=== PATIENT | female | born 1950 | race Caucasian/White ===

== ENCOUNTER 2024-02-15 12:07 | Emergency (ER) | payer OTHER, SELFPAY ==
--- NOTE | 2024-02-15 | ECG_ITS ---
Test Reason : DIZZINESS Blood Pressure : / mmHG Vent. Rate : 061 BPM Atrial Rate : 061 BPM P-R Int : 192 ms QRS Dur : 078 ms QT Int : 418 ms P-R-T Axes : 055 -15 055 degrees QTc Int : 420 ms Normal sinus rhythm Minimal voltage criteria for LVH, may be normal variant ( R in aVL ) Borderline ECG No previous ECGs available Referred By: Generic ED Physician Electronically Signed By:LAURENCE MABRY
--- NOTE | ~2024-02-15 | CT_ITS ---
EXAMINATION: CTA head and neck with and without contrast CLINICAL INFORMATION: Dizziness, history of TIA COMPARISON: None available. TECHNIQUE: Test bolus sequences followed by intravenous administration of 70 mL of Omnipaque 350 contrast. Helical imaging was performed in the axial plane from the skull vertex to the thoracic inlet. Delayed postcontrast imaging of the head was also performed. The data was processed at the production technologist workstation for generation of MIP sequences. Angled MIPs and volume rendered reformatted images were also generated at an offline 3D workstation. Stenoses are assessed in accordance with NASCET criteria unless otherwise indicated. This CT examination was performed using dose optimization techniques as appropriate, variously including the following: *Automated exposure control *Adjustment of mA and/or kV according to patient size (this includes techniques or standardized protocols for targeted exams where dose is matched to indication/reason for exam; i.e. extremities or head) *Use of iterative reconstruction technique DLP: 1951 mGy-cm FINDINGS: BRAIN: No acute intracranial hemorrhage or infarct. The amezquita-white matter differentiation is preserved. Patchy hypodensity involving the periventricular and deep white matter compatible with small vessel ischemic disease. No midline shift or hydrocephalus. No acute extra-axial fluid collections. The osseous structures are unremarkable. No orbital pathology. Sequela bilateral lens replacement. The paranasal sinuses and mastoid air cells are clear. Atherosclerotic calcifications of the bilateral carotid siphons. CTA NECK: Three-vessel aortic arch. The innominate and bilateral subclavian arteries are patent. The origins and cervical segments of the common carotid arteries as well as the common carotid artery bifurcations are patent bilaterally. The cervical segments of the internal carotid arteries are also patent bilaterally. The origins and cervical segments of the vertebral arteries are patent bilaterally. No hemodynamically significant stenosis, dissection, or aneurysm. The visualized branches of the external carotid arteries are unremarkable. CTA HEAD: Anterior circulation: The petrous, cavernous, and supraclinoid segments of the internal carotid arteries are patent bilaterally. The major branches of the anterior and middle cerebral arteries as well as anterior communicating artery complex are patent. No large vessel occlusion, saccular aneurysm, or dissection. Posterior circulation: The intracranial vertebral arteries are patent bilaterally. The basilar artery is normal in course and caliber. The posterior cerebral and superior cerebellar arteries arise normally from the basilar summit. Left posterior cerebral artery. No aneurysm. On delayed imaging, the venous structures demonstrate normal contrast opacification. No filling defect. No abnormal intraparenchymal enhancement. Soft tissues: No suspicious neck mass or cervical adenopathy. Lungs: Clear. Bones: No acute osseous abnormality. No lytic or blastic osseous lesions. Multilevel degenerative changes of the visualized spine. CT/CT angio head neck IMPRESSION: CT head demonstrates no acute intracranial hemorrhage or edematous territorial infarction. CTA head demonstrates no large vessel occlusion, saccular aneurysm, or dissection. CTA neck demonstrates no hemodynamically significant stenosis, dissection, or aneurysm. Electronically signed by: Homero Alex MD 02/15/2024 03:03 PM EDT
[2024-02-15 12:11] VITALS: BP 132/92; PULSE 65; O2SAT 98; BMI 25.7
[2024-02-15 12:18] VITALS: BP 154/75; PULSE 65; RESP 16; TEMP 36.7; O2SAT 97
--- NOTE | 2024-02-15 12:25 | ED_ITS ---
HPI - General Adult General Chief complaint: Dizziness Stated complaint: N/V/D Time Seen by Provider: 02/15/24 12:22 Source: patient, EMS and polytechnic teacher (macedonian) Mode of arrival: EMS Limitations: no limitations (macedonian speaking) History of Present Illness ED Provider: TITA CERNA PA-C HPI narrative: 73 year old Latvian speaking female presents to the ED today for evaluation of dizziness and nausea which began last night. Patient reports dizziness feels like a room spinning sensation. Has been intermittent since onset. Was initially afraid to ambulate to the restroom last night however dizziness had temporarily resolved and she was able to ambulate to the bathroom. Reports symptoms continued this morning, prompting her to call EMS for transport to ED. admits to remote history of vertigo and states that this feels similar. Does not currently take any medication for vertigo. Dizziness is not worse with head movements. Denies any falls or head trauma. Admits to associated nausea without vomiting. Denies headache, vision changes, chest pain, palpitations, shortness of breath, calf pain or swelling. Denies recent travel or long car rides. healthcare or medical utilized throughout visit to communicate with patient. Related Data Previous Rx's ?Medication ?Instructions ?Recorded meclizine 25 mg tablet 25 mg PO BID PRN dizziness #20 tabs 02/15/24 Allergies Allergy/AdvReac Type Severity Reaction Status Date / Time No Known Allergies Allergy Verified 02/15/24 12:14 Review of Systems 2 Review of Systems: Constitutional: No fever, chills, fatigue, night sweats, weight changes ENT/Mouth: No ear pain, hearing loss, nasal congestion, sinus pain, rhinorrhea, sore throat Eyes: No eye pain, swelling, redness, vision changes, discharge Cardio: No chest pain, palpitations, SEWELL, orthopnea, peripheral edema Pulm: No SOB, cough, sputum, wheezing, dyspnea, hemoptysis GI: No vomiting, hematemesis, abdominal pain, diarrhea, constipation, hematochezia, melena, +nausea : No irregular bleeding, dysuria, frequency, urgency, hesitancy, hematuria, flank pain, urinary flow changes, urinary incontinence or retention MSK: No back pain, neck pain, joint pain, myalgias Skin: No lesions, rashes Neuro: No weakness, numbness, paresthesias, LOC, headache, +dizziness Psych: No anxiety/panic, depression, SI/HI, AH/VH All other systems reviewed and are negative. [facility] Past Medical History Attestation statement: The following information was validated with the patient. Source: old records reviewed and nursing notes reviewed Social History Social History Smoked in Last 30 Days: No Use of substances other than those prescribed or required for medical reasons: No Advance Directives: No Advance Directives Information Provided: No Do you have a plan to hurt others: No Plan Physical Exam ED Vital Signs: Vital Signs - 24 hr 02/15/24 12:18 02/15/24 14:50 02/15/24 15:50 Temperature 98.1 F 97.5 F 97.9 F Pulse Rate 65 61 65 Respiratory Rate 16 17 16 Blood Pressure 154/75 H 153/72 H 157/75 H Pulse Oximetry 97 95 97 Oxygen Delivery Method Room Air Room Air Room Air 02/15/24 16:00 Temperature 97.9 F Pulse Rate 65 Respiratory Rate 16 Blood Pressure 157/75 H Pulse Oximetry 97 Oxygen Delivery Method Room Air BMI result Body Mass Index 25.7 hypertensive to 154/75 vitals otherwise wnl General: Well appearing, in no acute distress. Skin: Warm, dry, intact. No rashes or lesions. Head: Normocephalic, atraumatic. EENT: Hearing is intact b/l. Conjunctiva clear. PERRLA. Moist mucous membranes.? Neck: Supple without LAD Cardiac: Chest wall symmetric. RRR. No MRG. No JVD. Lungs: Normal respiratory effort without accessory muscle use. CTA bilaterally.? Abdomen: Soft, non-tender, non-distended. No rebound tenderness or guarding. Positive BS x4. Back: No midline spinous or paraspinal tenderness. Ext: Upper and lower extremities atraumatic, without tenderness, deformity, swelling or erythema. Full ROM throughout. Neuro: AOx3. Normal speech. Strength 5/5 intact throughout. Sensation intact to light touch. NV intact distally. Ambulating with steady gait. finger to nose intact. rapid mvmts of UE intact. Psych: Appropriate mood and affect. Responds appropriately to questions. NIH Stroke Scale Internal: Initial- Upon Arrival Time: 12:22 Level of Consciousness: Alert Level of Consciousness Questions: Answers both questions correctly Level of Consciousness Commands: Performs both tasks correctly Best Gaze: Normal Visual: No visual loss Facial Palsy: Normal Motor Arm (Right): No drift Motor Arm (Left): No drift Motor Leg (Right): No drift Motor Leg (Left): No drift Limb Ataxia: Absent Sensory: Normal Best Language: No aphasia Dysarthia: Normal Extinction and Inattention: No abnormality Score: 0 Course Course Course Narrative: 1546 --CBC without leukocytosis or left shift. No anemia. H&H stable. Chemistry without acute electrolyte abnormality requiring intervention. BUN elevated at 24. Creatinine WNL. Random glucose 126. Liver enzymes WNL. Lipase slightly elevated 96. TSH WNL. Troponin undetectable. ACS unlikely. EKG showing normal sinus rhythm with a rate of 61 beats per minute, QT 418, QTC 420, no acute ischemic changes or ST elevations. CT head without intracranial hemorrhage. CTA head/ neck without occlusion/ stenosis. > On re-evaluation, patient reports improvement in symptoms after receiving IVF and meclizine. Has ambulated to bathroom partially assisted by radiographer technologist however states she feels significantly better. Does not have any hesitations with ambulating at present. > given unremarkable work up and improvement with IV medications, I suspect peripheral vertigo. I do not feel as though MRI is indicated at this time as cerebellar exam is intact. Will send meclizine to pharmacy. advised to follow up with PCP this week. Patient has remained stable throughout ED visit today. Discussed worrisome signs and symptoms and when to return to the ED. All questions answered at this time. Patient is agreeable with disposition and stable for discharge. Medications Administered Discontinued Medications Generic Name Dose Route Start Last Admin Trade Name Melinda PRN Reason Stop Dose Admin Sodium Chloride 1,000 mls @ 999 mls/hr 02/15/24 13:00 02/15/24 15:15 Ns IV 02/15/24 14:00 Infused .Q1H1M SURESH Infusion Iohexol 100 ml 02/15/24 14:08 02/15/24 14:08 Iohexol 350 Mg/Ml 100 Ml Infus..Btl IV 02/15/24 14:09 70 ml ONCE ONE Administration Meclizine HCl 25 mg 02/15/24 12:56 02/15/24 13:08 Meclizine Hcl 25 Mg Tablet PO 02/15/24 12:57 25 mg ONCE ONE Administration Medical Decision Making Medical Decision Making [facility] Narrative: 73 year old Latvian speaking female presents to the ED today for evaluation of dizziness and nausea which began last night. Hypertensive to 154/75. Vitals otherwise WNL. She is nontoxic-appearing and in no acute distress. Speaking in full clear sentences. No facial droop. No slurred speech. Cerebellum intact. Ambulating with steady gait. No focal neuro deficits. cerebellum intact. Abdomen is soft, nondistended, nontender to palpation, no rebound tenderness or guarding. Differential diagnosis includes anemia, electrolyte abnormality, dehydration, viral syndrome, thyroid abnormality, UTI Lower suspicion for intracranial hemorrhage, ischemia or cerebellar stroke however given patient's age and history of TIA, will add on CT head/brain and CTA head/neck. Plan for labs, ekg, imaging head/ neck, IVF + meclizine and re-evaluation. Differential Diagnosis Differential Diagnoses: The differential diagnosis associated with the presentation includes as above. Admission/Observation not indicated. Lab Data [facility] Lab Attestation statement: I reviewed the patient's lab results. as above. 02/15/24 12:40 02/15/24 12:40 Labs: Lab Results 02/15/24 02/15/24 Range/Units 12:40 12:55 WBC 6.8 (4.8-10.8) X10*3/uL RBC 4.56 (4.20-5.50) X10*6/uL Hgb 12.5 (12.0-16.0) g/dl Hct 37.2 (37.0-47.0) % MCV 81.6 (80.0-98.0) fL MCH 27.4 (27.0-33.0) pg MCHC 33.6 (31.0-35.0) g/dl RDW 14.8 (11.0-16.0) % Plt Count 260 (160-400) X10*3/uL MPV 9.0 L (9.4-12.3) fL Immature Gran % (Auto) 0.1 (0.0-0.4) % Neut % (Auto) 59.2 (45-73) % Lymph % (Auto) 33.0 (20-40) % [place] % (Auto) 7.0 (2-11) % Eos % (Auto) 0.3 (0-4) % Baso % (Auto) 0.4 (0-2) % Lymph # (Auto) 2.2 (1.2-4.9) X10*3/uL [place] # (Auto) 0.5 (0.1-1.2) X10*3/uL Eos # (Auto) 0.0 (0.0-0.4) X10*3/uL Baso # (Auto) 0.0 (0.0-0.2) X10*3/uL Abs Immat Gran (auto) 0.01 (0.00-0.03) X10*3/uL Absolute Neuts (auto) 4.0 (2.0-8.3) x10*3/uL Absolute Nucleated RBC 0.000 (0.0-0.012) X10*3/uL Nucleated RBC % (auto) 0.0 (0.0-0.2) /100WBC Sodium 142 (135-145) mmol/L Potassium 4.4 (3.3-5.1) mmol/L Chloride 106 (96-108) mmol/L Carbon Dioxide 26 (22-29) mmol/L Anion Gap 14 (12-20) BUN 24 H (9-16) mg/dL Creatinine 0.96 (0.5-1.4) mg/dL Estim Creat Clear Calc 46.8 Estimated GFR 57 Random Glucose 126 H (60-115) mg/dL Calcium 10.0 (8.4-10.2) mg/dL Magnesium 1.8 (1.6-2.6) mg/dL Total Bilirubin 0.5 (0.0-1.0) mg/dL AST 24 (5-31) U/L ALT 37 H (0-31) U/L Alkaline Phosphatase 77 (39-117) U/L Troponin I High Sens < 2.7 (<3.5-17.0) ng/L Total Protein 7.7 (6.5-8.0) g/dL Albumin 4.0 (3.5-5.0) g/dL Lipase 96 H (8-78) U/L TSH 1.51 (0.32-4.0) uIU/mL Urine Color Yellow Urine Appearance Clear Urine pH 7.0 (5.0-9.0) Ur Specific [place] 1.010 (1.005-1.025) Urine Protein Negative (Neg-Trace) mg/dL Urine Glucose (UA) Negative (Negative) mg/dL Urine Ketones Negative (Negative) mg/dL Urine Blood Negative (Negative) Urine Nitrite Negative (Negative) Ur Leukocyte Esterase Large (3+) H (Negative) Urine RBC 0-2 (0-2) /HPF Urine WBC 21-50 H (0-5) /HPF Ur Squamous Epith Cells 6-10 (0-2) /HPF Urine Bacteria None Seen (None Seen) Hyaline Casts 0-2 (0-2) /LPF Influenza Type A (PCR) NEGATIVE (Negative) Influenza Type B (PCR) NEGATIVE (Negative) RSV RNA Qual (PCR) NEGATIVE (Negative) SARS-CoV-2 RNA (RT-PCR) NEGATIVE (Negative) Independent Interpretation I performed an independent interpretation of an: EKG and CT Scan Interpretation: CT head/ brain without bleed, agree with radiologist's interpretation CT angio head/ neck without occlusion, agree with radiologist's interpretation EKG showing normal sinus rhythm with a rate of 61 beats per minute, QT 418, QTC 420, no acute ischemic changes or ST elevations. Radiology Impression Discussion of test interpretation with radiology: I have reviewed the radiologist's reading. Radiologist Impression: EXAMINATION: CTA head and neck with and without contrast CLINICAL INFORMATION: Dizziness, history of TIA COMPARISON: None available. TECHNIQUE: Test bolus sequences followed by intravenous administration of 70 mL of Omnipaque 350 contrast. Helical imaging was performed in the axial plane from the skull vertex to the thoracic inlet. Delayed postcontrast imaging of the head was also performed. The data was processed at the cardiac cath technologist workstation for generation of MIP sequences. Angled MIPs and volume rendered reformatted images were also generated at an offline 3D workstation. Stenoses are assessed in accordance with NASCET criteria unless otherwise indicated. This CT examination was performed using dose optimization techniques as appropriate, variously including the following: *Automated exposure control *Adjustment of mA and/or kV according to patient size (this includes techniques or standardized protocols for targeted exams where dose is matched to indication/reason for exam; i.e. extremities or head) *Use of iterative reconstruction technique DLP: 1951 mGy-cm FINDINGS: BRAIN: No acute intracranial hemorrhage or infarct. The amezquita-white matter differentiation is preserved. Patchy hypodensity involving the periventricular and deep white matter compatible with small vessel ischemic disease. No midline shift or hydrocephalus. No acute extra-axial fluid collections. The osseous structures are unremarkable. No orbital pathology. Sequela bilateral lens replacement. The paranasal sinuses and mastoid air cells are clear. Atherosclerotic calcifications of the bilateral carotid siphons. CTA NECK: Three-vessel aortic arch. The innominate and bilateral subclavian arteries are patent. The origins and cervical segments of the common carotid arteries as well as the common carotid artery bifurcations are patent bilaterally. The cervical segments of the internal carotid arteries are also patent bilaterally. The origins and cervical segments of the vertebral arteries are patent bilaterally. No hemodynamically significant stenosis, dissection, or aneurysm. The visualized branches of the external carotid arteries are unremarkable. CTA HEAD: Anterior circulation: The petrous, cavernous, and supraclinoid segments of the internal carotid arteries are patent bilaterally. The major branches of the anterior and middle cerebral arteries as well as anterior communicating artery complex are patent. No large vessel occlusion, saccular aneurysm, or dissection. Posterior circulation: The intracranial vertebral arteries are patent bilaterally. The basilar artery is normal in course and caliber. The posterior cerebral and superior cerebellar arteries arise normally from the basilar summit. Left posterior cerebral artery. No aneurysm. On delayed imaging, the venous structures demonstrate normal contrast opacification. No filling defect. No abnormal intraparenchymal enhancement. Soft tissues: No suspicious neck mass or cervical adenopathy. Lungs: Clear. Bones: No acute osseous abnormality. No lytic or blastic osseous lesions. Multilevel degenerative changes of the visualized spine. CT/CT angio head neck IMPRESSION: CT head demonstrates no acute intracranial hemorrhage or edematous territorial infarction. CTA head demonstrates no large vessel occlusion, saccular aneurysm, or dissection. CTA neck demonstrates no hemodynamically significant stenosis, dissection, or aneurysm. Electronically signed by: Homero Alex MD 02/15/2024 03:03 PM EDT RP Independent Historian Clinical information obtained from an independent historian. History obtained from or confirmed by: EMS Prescription Management I considered prescription management with: Other (meclizine) Chronic Conditions Patient?s care impacted by: Other (vertigo) Social Determinants Patient?s care significantly limited by Social Determinants of Health including: Other Social Determinant of Health Critical Care Time Critical Care Time Critical Care Time: No Discharge Plan Discharge Clinical Impression: Dizziness Patient Disposition: Home, Self-Care Instructions: Vertigo (ED), Dizziness (ED) Additional Instructions: Your blood work today is reassuring. Your urine is negative for infection. You tested negative for COVID, flu, RSV. The imaging of your head/neck is normal. It does not demonstrate bleed or ischemia. Your symptoms improved with medications and IV fluids today. Meclizine is a medication that has been sent to your pharmacy to help with your dizziness. Return with new or worsening symptoms. In the case of an emergency call 911. Prescriptions: New meclizine 25 mg tablet 25 mg PO BID PRN (Reason: dizziness) Qty: 20 0RF Interventions: ED Discharge Assessment Last Done: 02/15/24 16:00 Discharge Date/Time: 02/15/24 16:10 Print Language: Belarusian
[2024-02-15 12:46] LABS: MANUAL DIFF FLAG NO
[2024-02-15 12:47] LABS: Basophils Percent Auto 0.4 % (0-2); Eosinophils Percent Auto 0.3 % (0-4); Hematocrit 37.2 % (37.0-47.0); Hemoglobin 12.5 g/dl (12.0-16.0); Imm Gran Abs Auto 0.01 X10*3/uL (0.00-0.03); Imm Gran Pct Auto 0.1 % (0.0-0.4); Lymphocytes Absolute Auto 2.2 X10*3/uL (1.2-4.9); Mean Corpuscular HGB Conc 33.6 g/dl (31.0-35.0); Mean Corpuscular Hemoglobin 27.4 pg (27.0-33.0); Mean Corpuscular Volume 81.6 fL (80.0-98.0); Monocytes Absolute Auto 0.5 X10*3/uL (0.1-1.2); Neutrophils Percent Auto 59.2 % (45-73); Platelet Count 260 X10*3/uL (160-400); Red Blood Count 4.56 X10*6/uL (4.20-5.50); Red Cell Distribution Width 14.8 % (11.0-16.0); White Blood Count 6.8 X10*3/uL (4.8-10.8)
--- NOTE | 2024-02-15 12:57 | PC.NURSE ---
pt unable to ambulate d/t increase in dizziness. bed east utilized - UA obtained/sent to lab.
[2024-02-15 13:04] LABS: Alanine Aminotransferase 37 U/L (0-31); Alkaline Phosphatase 77 U/L (39-117); Anion Gap 14 (12-20); Aspartate Amino Transferase 24 U/L (5-31); Bilirubin Total 0.5 mg/dL (0.0-1.0); Blood Urea Nitrogen 24 mg/dL (9-16); Carbon Dioxide 26 mmol/L (22-29); Chloride 106 mmol/L (96-108); Creatinine Clr Calc Pharmacy 46.8; Estimated Glomerular Filt Rate 57; Glucose Random 126 mg/dL (60-115); Lipase 96 U/L (8-78); Magnesium 1.8 mg/dL (1.6-2.6); Potassium 4.4 mmol/L (3.3-5.1); Sodium 142 mmol/L (135-145); Total Protein 7.7 g/dL (6.5-8.0)
[2024-02-15 13:06] LABS: Appearance Urine Clear; Color Urine Yellow; Glucose Urine UA Negative (Negative); Leukocyte Esterase Urine Large (3+) (Negative); Nitrite Urine Negative (Negative); UMIC TRIGGER UACC YES; Urine Blood Negative (Negative); Urine Ketones Negative (Negative); Urine Protein Negative (Neg-Trace)
[2024-02-15] MEDS: 0.9 % Sodium Chloride 1,000 ML 999 ML IV (13:08)
[2024-02-15] MEDS: Meclizine HCl 25 MG TABLET PO (13:08)
[2024-02-15 13:11] LABS: Troponin-I High Sensitivity < 2.7 ng/L (<3.5-17.0)
[2024-02-15 13:11] LABS: Bacteria Urine None Seen (None Seen); Hyaline Casts Urine 0-2 /LPF (0-2); RBC Urine 0-2 /HPF (0-2); UACC Culture Trigger YES; WBC Urine 21-50 /HPF (0-5)
--- NOTE | 2024-02-15 13:18 | PC.NURSE ---
medication/IVF administered per provider order. effectiveness pending. pt waiting to go to CT at this time. plan of care ongoing.
[2024-02-15 13:24] LABS: TSH reflex Free T4 1.51 uIU/mL (0.32-4.0)
[2024-02-15 13:27] LABS: Influenza A PCR NEGATIVE (Negative); Influenza B PCR NEGATIVE (Negative); Resp Syncy Virus RNA Qual PCR NEGATIVE (Negative); SARS COV2 PCR INHOUSE NEGATIVE (Negative)
--- NOTE | 2024-02-15 13:45 | PC.NURSE ---
pt to CT at this time.
[2024-02-15] MEDS: iohexoL 350 MG/ML 100 ML INFUS..BTL IV (14:08)
[2024-02-15 14:50] VITALS: BP 153/72; PULSE 61; RESP 17; TEMP 36.4; O2SAT 95
[2024-02-15 15:50] VITALS: BP 157/75; PULSE 65; RESP 16; TEMP 36.6; O2SAT 97
[2024-02-15 16:00] VITALS: BP 157/75; PULSE 65; RESP 16; TEMP 36.6; O2SAT 97
== END 2024-02-15 16:10 | disposition home or self-care (01) ==
PROVIDERS: Physician Assistant Medical; Emergency Provider Emergency Medicine Emergency Medical Services
DX: R42 Dizziness and giddiness (principal); R11.0 Nausea; R94.31 Abnormal electrocardiogram [ECG] [EKG]; Z03.818 Encounter for observation for suspected exposure to other biological agents ruled out; Z79.899 Other long term (current) drug therapy; Z86.73 Personal history of transient ischemic attack (TIA), and cerebral infarction without residual deficits
CPT/HCPCS: 0241U; 36415; 70496; 70498; 80053; 81001; 83690; 83735; 84443; 84484; 85025; 87086; 93005; 96360; 99285; Q9967

== ENCOUNTER 2024-12-26 14:09 | Emergency (ER) | payer OTHER, SELFPAY ==
--- NOTE | 2024-12-26 | ECG_ITS ---
Test Reason : cp Blood Pressure : */* mmHG Vent. Rate : 78 BPM Atrial Rate : 78 BPM P-R Int : 182 ms QRS Dur : 76 ms QT Int : 388 ms P-R-T Axes : 61 -10 67 degrees QTcB Int : 442 ms Normal sinus rhythm Minimal voltage criteria for LVH, may be normal variant ( R in aVL ) Nonspecific ST and T wave abnormality Abnormal ECG When compared with ECG of 15-Feb-2024 12:18, No significant change was found Referred By: Generic ED Physician Electronically Signed By: Tirso Sterling
--- NOTE | ~2024-12-26 | XR_ITS ---
CLINICAL HISTORY: chest pain Chest Radiograph Comparison: None available Findings: No cardiomegaly. Normal mediastinal contours. No pneumothorax. No opacity. No pleural effusion. Normal upper abdomen. No acute fracture. Impression: No acute findings. This document has been electronically signed by: Odalys Haywood MD on 12/26/2024 15:35:53
[2024-12-26 14:19] VITALS: BP 107/68; BP 123/70; PULSE 75; PULSE 82; RESP 17; TEMP 36.7; O2SAT 94; O2SAT 98; BMI 25.2
--- NOTE | 2024-12-26 14:49 | ED_ITS ---
HPI - Chest Pain General Chief Complaint: Chest Pain Stated Complaint: CP STARTING 30 MIN AGO Time Seen by Provider: 12/26/24 14:43 Source: patient Mode of arrival: ambulatory Limitations: no limitations History of Present Illness HPI narrative: This is a very pleasant 74 years old patient presented to the emergency room via ambulance with a chief complaint of left chest pain. She stated that she was home cleaning it she has been Sameer's precordial chest pain without radiation she called 911 she was given aspirin the pain is subsided at this time onset was about 2 hours ago. She has a history of diabetes, hypertension, hypercholesterolemia she does not smoke. No prior history of CAD. MD complaint: chest pain Onset (ago): hour(s) (2) Timing of current episode: now resolved Onset: other (cleaning the house) Pain location: left chest Pain radiation: none Severity: mild Quality: aching Exacerbating factors: nothing Context: recent illness Risk Factors Coronary artery disease risk factors: none Related Data Previous Rx's ?Medication ?Instructions ?Recorded meclizine 25 mg tablet 25 mg PO BID PRN dizziness # 20 tabs 02/15/24 Allergies Allergy/AdvReac Type Severity Reaction Status Date / Time No Known Allergies Allergy Verified 12/26/24 14:42 Review of Systems 2 Constitutional: Constitutional: Reports no additional constitutional complaints ENT: Reports system reviewed and no additional complaints, except as documented Cardiovascular: Cardiovascular: Reports as per HPI [facility] Past Medical History [facility] Narrative: Diabetes hypertension hypercholesterolemia Social History Social History Smoked in Last 30 Days: No Use of substances other than those prescribed or required for medical reasons: No Advance Directives: No Advance Directives Information Provided: Yes Physical Exam 2 Exam: Exam: No acute distress comfortable in the stretcher Vital Signs: Vital Signs: Last Vital Signs Temp 98.4 F 12/26/24 18:00 Pulse 75 12/26/24 18:00 Resp 18 12/26/24 18:00 BP 104/69 12/26/24 18:00 Pulse Ox 97 12/26/24 18:00 O2 Del Method Room Air 12/26/24 18:00 BMI result Body Mass Index 25.2 Stable vital signs normotensive not tachycardic Const: General: cooperative Nutritional Appearance: average body habitus Orientation/consciousness: patient oriented x3 Limitations: no limitations HEENT: Head: Yes normal to inspection Ears: hearing grossly normal bilaterally General nose exam: Normal external nose present Face and sinus: Yes normal facial exam Mouth: Normal oral and palatal mucosa present Neck: Neck: Yes normal visual inspection Chest: Chest palpation & inspection: normal inspection of the chest Resp: Effort & Inspection: normal respiratory effort Auscultation: clear to auscultation bilaterally Cardio: Jugular venous distension: no JVD Rhythm: regular rhythm GI: Inspection: Yes normal to inspection Palpation (GI): Soft to palpation, not firm and nontender Auscultation: normal bowel sounds Skin: General skin exam: no rashes or lesions noted and elasticity normal L esions: no lesions Rashes: no rashes Neuro: General: patient oriented x3 Course Reevaluation(s) Reevaluation #1: 16:10 the case was signed out to doctor Judd, 1st troponin negative we will repeat another troponin at 17:30 Time: 16:11 Reevaluation #2: 12/26/2024 Giancarlo Whaley MD note at 18:39 hours I assumed care of this patient from my colleague Dr. Eduardo at 16:11 hours pending the patient's repeat troponin. The patient is a 74-year-old female past medical history diabetes mellitus, hypertension, high cholesterol who presents emergency department for evaluation of sudden onset of left-sided chest pain that occurred while she was mopping the floor. This is a 1st episode of this type of chest pain. She denied associated dizziness, lightheadedness, radiation of the pain to her neck, jaw, arms or back, diaphoresis, nausea or vomiting. Patient was given aspirin. Her pain resolved after a proximally 1 hour. She has been pain-free since being here in the emergency department. Patient's 1st troponin was below detectable limits, repeat troponin was also below detectable limits suggesting the patient did not have myocardial infarction or injury is the cause of her symptoms. Patient is pain-free in his had no recurrence of her pain. Patient's 12 EKG was unremarkable in her chest x-ray was unremarkable. This time I do not have a clear etiology for her pain but I do not think that she had a myocardial infarction as the cause of her pain. I did discuss this with her. She was advised to continue to take your medications as prescribed by your providers. She was also advised to take Tylenol for pain and to follow up with her PCP for re-evaluation in his return if her symptoms got worse or she developed any new symptoms that were concerning to her.Patient was given printed and verbal instructions and discharged home. Medical Decision Making Medical Decision Making [facility] Narrative: The patient is here with chest pain obtain electrocardiogram I sensitive troponin chest x-ray Differential Diagnosis Differential Diagnoses: The differential diagnosis associated with the presentation includes ACS/pericarditis/musculoskeletal pain Admission/Observation Consideration of admission/observation: Escalation of care including admission/observation considered Lab Data 12/26/24 15:28 12/26/24 15:28 Labs: Lab Results 12/26/24 12/26/24 Range/Units 15:28 16:28 WBC 7.4 (4.8-10.8) X10*3/uL RBC 4.19 L (4.20-5.50) X10*6/uL Hgb 12.0 (12.0-16.0) g/dl Hct 35.8 L (37.0-47.0) % MCV 85.4 (80.0-98.0) fL MCH 28.6 (27.0-33.0) pg MCHC 33.5 (31.0-35.0) g/dl RDW 13.6 (11.0-16.0) % Plt Count 238 (160-400) X10*3/uL MPV 9.3 L (9.4-12.3) fL Immature Gran % (Auto) 0.1 (0.0-0.4) % Neut % (Auto) 60.2 (45-73) % Lymph % (Auto) 30.0 (20-40) % [place] % (Auto) 8.4 (2-11) % Eos % (Auto) 0.8 (0-4) % Baso % (Auto) 0.5 (0-2) % Lymph # (Auto) 2.2 (1.2-4.9) X10*3/uL [place] # (Auto) 0.6 (0.1-1.2) X10*3/uL Eos # (Auto) 0.1 (0.0-0.4) X10*3/uL Baso # (Auto) 0.0 (0.0-0.2) X10*3/uL Abs Immat Gran (auto) 0.01 (0.00-0.03) X10*3/uL Absolute Neuts (auto) 4.5 (2.0-8.3) x10*3/uL Absolute Nucleated RBC 0.000 (0.0-0.012) X10*3/uL Nucleated RBC % (auto) 0.0 (0.0-0.2) /100WBC D-Dimer High Sensitivty < 150 NG/ML Sodium 139 (135-145) mmol/L Potassium 4.3 (3.3-5.1) mmol/L Chloride 106 (96-108) mmol/L Carbon Dioxide 25 (22-29) mmol/L Anion Gap 12 (12-20) BUN 30 H (9-16) mg/dL Creatinine 1.30 (0.5-1.4) mg/dL Estim Creat Clear Calc 35.1 Estimated GFR 40 Random Glucose 150 H (60-115) mg/dL Calcium 9.2 D (8.4-10.2) mg/dL Magnesium 1.9 (1.6-2.6) mg/dL Total Bilirubin 0.2 (0.0-1.0) mg/dL AST 31 (5-31) U/L ALT 19 (0-31) U/L Alkaline Phosphatase 86 (39-117) U/L Troponin I High Sens < 2.7 < 2.7 (<3.5-17.0) ng/L Total Protein 7.1 (6.5-8.0) g/dL Albumin 4.0 (3.5-5.0) g/dL Independent Interpretation I performed an independent interpretation of an: EKG Interpretation: I reviewed interpreted the EKG as normal sinus rhythm rate [address]-T changes Chronic Conditions Patient?s care impacted by: Diabetes, Hypertension and Other (Hyperlipidemia) Discharge Plan Discharge Clinical Impression: Chest pain Qualifiers: Chest pain type: unspecified Qualified Code(s): R07.9 - Chest pain, unspecified Patient Disposition: Home, Self-Care Instructions: Chest Pain (ED) Additional Instructions: Your marker of heart attack/heart damage (high sensitive troponin I) was below detectable limits when you 1st got here and your 2 hour repeat was also below detectable limits. This has very reassuring and suggests that you did not have a heart attack or heart damage as the cause of your chest pain. Your EKG which is an electrical picture of your heart was also normal and did not show any evidence for a heart attack at this time. Your chest x-ray was normal Take extra-strength Tylenol 500 mg pills, 2 pills every 6 hours as needed for pain. Continue taking medications as prescribed by your providers. Follow-up with your doctor in 2 days. Please return to the emergency department if your symptoms get worse or if you develop any symptoms that are concerning to you. Prescriptions: No Action meclizine 25 mg tablet 25 mg PO BID PRN (Reason: dizziness) Qty: 20 0RF Print Language: American
[2024-12-26 15:32] LABS: MANUAL DIFF FLAG NO
[2024-12-26 15:40] LABS: Hematocrit 35.8 % (37.0-47.0); Hemoglobin 12.0 g/dl (12.0-16.0); Imm Gran Abs Auto 0.01 X10*3/uL (0.00-0.03); Imm Gran Pct Auto 0.1 % (0.0-0.4); Lymphocytes Absolute Auto 2.2 X10*3/uL (1.2-4.9); Mean Corpuscular HGB Conc 33.5 g/dl (31.0-35.0); Mean Corpuscular Hemoglobin 28.6 pg (27.0-33.0); Mean Corpuscular Volume 85.4 fL (80.0-98.0); NRBC Abs Auto 0.000 X10*3/uL (0.0-0.012); NRBC Pct Auto 0.0 /100WBC (0.0-0.2); Platelet Count 238 X10*3/uL (160-400); Red Blood Count 4.19 X10*6/uL (4.20-5.50); White Blood Count 7.4 X10*3/uL (4.8-10.8)
[2024-12-26 15:48] LABS: Alanine Aminotransferase 19 U/L (0-31); Albumin Level 4.0 g/dL (3.5-5.0); Alkaline Phosphatase 86 U/L (39-117); Anion Gap 12 (12-20); Aspartate Amino Transferase 31 U/L (5-31); Blood Urea Nitrogen 30 mg/dL (9-16); Calcium 9.2 mg/dL (8.4-10.2); Carbon Dioxide 25 mmol/L (22-29); Chloride 106 mmol/L (96-108); Creatinine Clr Calc Pharmacy 35.1; Estimated Glomerular Filt Rate 40; Magnesium 1.9 mg/dL (1.6-2.6); Potassium 4.3 mmol/L (3.3-5.1); Sodium 139 mmol/L (135-145); Total Protein 7.1 g/dL (6.5-8.0)
[2024-12-26 15:54] LABS: Troponin-I High Sensitivity < 2.7 ng/L (<3.5-17.0)
[2024-12-26 15:58] LABS: D Dimer High Sensitivity < 150 NG/ML
[2024-12-26 16:11] VITALS: BP 118/63; PULSE 85; RESP 22; O2SAT 98
[2024-12-26 16:56] LABS: Troponin-I High Sensitivity < 2.7 ng/L (<3.5-17.0)
[2024-12-26 18:00] VITALS: BP 104/69; PULSE 75; RESP 18; TEMP 36.9; O2SAT 97
[2024-12-26 19:11] VITALS: BP 104/69; PULSE 75; RESP 18; TEMP 36.9; O2SAT 97
== END 2024-12-26 19:12 | disposition home or self-care (01) ==
PROVIDERS: Emergency Medicine; Emergency Provider Emergency Medicine Emergency Medical Services
DX: R07.89 Other chest pain (principal); Z79.899 Other long term (current) drug therapy
CPT/HCPCS: 36415; 71045; 80053; 83735; 84484; 85025; 85379; 93005; 99283; 99285

== ENCOUNTER → 2024-12-26 14:28 | Outpatient (BNV) | payer OTHER, SELFPAY | PROVIDERS: Emergency Provider Emergency Medicine Emergency Medical Services; Visit Provider Internal Medicine Cardiovascular Disease | DX: R94.31 Abnormal electrocardiogram [ECG] [EKG] (principal); R07.9 Chest pain, unspecified | CPT/HCPCS: 93010 ==

== ENCOUNTER → 2024-12-26 14:48 | Outpatient (BNV) | payer OTHER, SELFPAY | PROVIDERS: Emergency Provider Emergency Medicine; Visit Provider Radiology Diagnostic Radiology | DX: R07.9 Chest pain, unspecified (principal) | CPT/HCPCS: 71045 ==